=== PATIENT | male | born 1975 | race Caucasian/White ===

== ENCOUNTER 2022-01-03 11:43 | Inpatient (IN) ==
[2022-01-03 12:29] LABS: Basophils % 0.3 % (0.0-0.8); Eosinophils # 0.1 10*3/uL (0.0-0.87); Eosinophils % 0.9 % (0.00-10.9); Hematocrit 37.7 VOL% (42.0-52.0); Hemoglobin 12.4 GM/DL (14.0-18.0); Immature Granulocytes % 0.6 %; Immature Granulocytes Absolute 0.08 #; Lymphocytes # 1.4 10*3/uL (1.4-4.0); Lymphocytes % 10.9 % (21.2-54.2); Mean Corpuscular HGB Conc 32.9 GM/DL (32-36); Mean Corpuscular Volume 86.1 FL (87-102); Mean Platelet Volume 9.9 FL (9.6-12.0); Monocytes # 1.3 10*3/uL (0.11-0.8); Monocytes % 10.2 % (1.7-12.7); Neutrophils % 77.1 % (38.7-73.9); Platelet Count 462 T/CUMM (130-400); Red Blood Count 4.38 MC/CUMM (3.8-5.5); Red Cell Distribution Width 12.2 % (9.3-17.3); White Blood Count 13.1 T/CUMM (4-12)
[2022-01-03 12:51] LABS: Calcium 9.7 MG/DL (8.5-10.1); Osmolality,Calculated 268.4 MOS/KG (273-304); Potassium 3.8 MMOL/L (3.5-5.1)
[2022-01-03 13:09] LABS: Bilirubin,Urine Small mg/dL (Negative); Blood, Urine Negative (Negative); Glucose,Urine (UA) Negative (Negative); Ketones,Urine Trace mg/dL (Negative); Mucus,Urine Many /LPF (Occasional); Nitrite,Urine Negative (Negative); Protein,Urine 100 mg/dL (Negative); RBC,Urine 4 /HPF (0-4); Urine Appearance Clear (Clear); Urine Color Amber (Yellow); Urine Specific Gravity 1.025 (1.001-1.035)
[2022-01-03] MEDS ORDERED: ONDANSETRON 4 MG/2 ML VIAL IV PRN ×2 (13:37→14:20)
[2022-01-03] MEDS ORDERED: BISACODYL 5 MG TABLET PO PRN (13:37)
[2022-01-03] MEDS ORDERED: PROMETHAZINE 25 MG/1 ML VIAL IM PRN (13:37)
[2022-01-03] MEDS ORDERED: SODIUM CHLORIDE 0.9% 100 ML IV ONE (13:46)
[2022-01-03] MEDS ORDERED: cefTRIAXone 1,000 MG VIAL ONE (13:46)
[2022-01-03] MEDS ORDERED: HYDROmorphone 1 MG/1 ML SYRINGE ONE (13:47)
[2022-01-03] MEDS ORDERED: fentaNYL 100 MCG/2 ML VIAL ONE ×2 (13:51→14:29)
[2022-01-03] MEDS ORDERED: propofoL 200 MG/20 ML VIAL IV ONE (13:51)
[2022-01-03] MEDS ORDERED: DEXAMETHASONE 4 MG/1 ML VIAL ONE (13:51)
[2022-01-03] MEDS ORDERED: SUCCINYLCHOLINE 200 MG/10 ML VIAL ONE (13:51)
[2022-01-03] MEDS ORDERED: ROCURONIUM 50 MG/5 ML VIAL IV ONE (13:51)
[2022-01-03] MEDS ORDERED: ONDANSETRON 4 MG/2 ML VIAL ONE (13:51)
[2022-01-03] MEDS ORDERED: MIDAZOLAM 2 MG/2 ML VIAL ONE (13:51)
[2022-01-03] MEDS ORDERED: LIDOCAINE 2% 5 ML VIAL ONE (13:51)
[2022-01-03] MEDS ORDERED: HYDROmorphone 1 MG/1 ML SYRINGE IV ONE (14:00)
[2022-01-03] MEDS ORDERED: HYDROmorphone 1 MG/1 ML SYRINGE IV PRN (14:20)
[2022-01-03] MEDS ORDERED: diphenhydrAMINE 50 MG/1 ML VIAL IV PRN (14:20)
[2022-01-03] MEDS ORDERED: PROMETHAZINE INJ 25 MG in SODIUM CHLORIDE 0.9% 50 ML IV PRN (14:20)
[2022-01-03] MEDS ORDERED: MEPERIDINE 25 MG/1 ML VIAL IV PRN (14:20)
[2022-01-03] MEDS ORDERED: VANCOMYCIN 1,000 MG VIAL ONE (14:29)
[2022-01-03] MEDS ORDERED: LACTATED RINGERS 1,000 ML IV ONE (14:47)
[2022-01-03] MEDS ORDERED: VANCOMYCIN INJ 1,250 MG in SODIUM CHLORIDE 0.9% 250 ML IV SCH (15:00)
[2022-01-03] MEDS ORDERED: SEVOFLURANE 1 UNIT/15 MINUTE INH ONE (15:12)
[2022-01-03] MEDS: cefTRIAXone 1,000 MG in SODIUM CHLORIDE 0.9% 100 ML IV SCH (15:36)
[2022-01-03] MEDS: SODIUM CHLORIDE 0.9% 1,000 ML IV SCH (15:45)
[2022-01-03] MEDS: oxyCODONE/ACETAMINOPHEN 5-325 MG TABLET PO PRN ×2 (17:25→22:29)
[2022-01-03] MEDS: HYDROmorphone 1 MG/1 ML SYRINGE IV PRN (20:20)
[2022-01-03] MEDS: VANCOMYCIN INJ 1,250 MG in SODIUM CHLORIDE 0.9% 250 ML IV SCH (20:50)
[2022-01-04 05:04] LABS: Basophils % 0.2 % (0.0-0.8); Eosinophils % 0.2 % (0.00-10.9); Hematocrit 33.9 VOL% (42.0-52.0); Hemoglobin 10.7 GM/DL (14.0-18.0); Immature Granulocytes % 0.4 %; Immature Granulocytes Absolute 0.05 #; Lymphocytes # 1.7 10*3/uL (1.4-4.0); Lymphocytes % 13.1 % (21.2-54.2); Mean Corpuscular HGB Conc 31.6 GM/DL (32-36); Mean Corpuscular Volume 89.2 FL (87-102); Mean Platelet Volume 10.2 FL (9.6-12.0); Monocytes # 0.9 10*3/uL (0.11-0.8); Monocytes % 7.3 % (1.7-12.7); Neutrophils % 78.8 % (38.7-73.9); Platelet Count 444 T/CUMM (130-400); Red Cell Distribution Width 12.2 % (9.3-17.3); White Blood Count 12.7 T/CUMM (4-12)
[2022-01-04] MEDS: SODIUM CHLORIDE 0.9% 1,000 ML IV SCH (05:13)
[2022-01-04] MEDS: HYDROmorphone 1 MG/1 ML SYRINGE IV PRN ×3 (07:49→22:19)
[2022-01-04] MEDS: VANCOMYCIN INJ 1,250 MG in SODIUM CHLORIDE 0.9% 250 ML IV SCH ×2 (09:30→20:37)
[2022-01-04] MEDS ORDERED: DEXAMETHASONE 4 MG/1 ML VIAL ONE ×2 (13:42→14:37)
[2022-01-04] MEDS ORDERED: ONDANSETRON 4 MG/2 ML VIAL ONE (13:42)
[2022-01-04] MEDS ORDERED: LIDOCAINE 2% 5 ML VIAL ONE (13:42)
[2022-01-04] MEDS ORDERED: fentaNYL 100 MCG/2 ML VIAL ONE (13:42)
[2022-01-04] MEDS ORDERED: SEVOFLURANE 1 UNIT/15 MINUTE INH ONE ×2 (13:42→13:47)
[2022-01-04] MEDS ORDERED: propofoL 200 MG/20 ML VIAL IV ONE (13:42)
[2022-01-04] MEDS ORDERED: MIDAZOLAM 2 MG/2 ML VIAL ONE (13:43)
[2022-01-04] MEDS ORDERED: SODIUM CHLORIDE 0.9% 1,000 ML IV ONE (14:39)
[2022-01-04] MEDS ORDERED: PHENYLEPHRINE 1 MG/10 ML SYRINGE IV ONE (14:47)
[2022-01-04] MEDS ORDERED: ACETAMINOPHEN INJ 1,000 MG/100 ML VIAL IV ONE (14:52)
[2022-01-04] MEDS ORDERED: KETOROLAC 30 MG/1 ML VIAL ONE (14:54)
[2022-01-04] MEDS ORDERED: HYDROmorphone 1 MG/1 ML SYRINGE IV PRN (15:16)
[2022-01-04] MEDS ORDERED: MEPERIDINE 25 MG/1 ML VIAL IV PRN (15:16)
[2022-01-04] MEDS: cefTRIAXone 1,000 MG in SODIUM CHLORIDE 0.9% 100 ML IV SCH (16:10)
[2022-01-04] MEDS: oxyCODONE/ACETAMINOPHEN 5-325 MG TABLET PO PRN (16:38)
[2022-01-05] MEDS: SODIUM CHLORIDE 0.9% 1,000 ML IV SCH (01:39)
[2022-01-05 04:41] LABS: Basophils % 0.4 % (0.0-0.8); Eosinophils % 0.4 % (0.00-10.9); Hematocrit 36.1 VOL% (42.0-52.0); Hemoglobin 11.4 GM/DL (14.0-18.0); Immature Granulocytes % 1.4 %; Immature Granulocytes Absolute 0.13 #; Lymphocytes # 1.5 10*3/uL (1.4-4.0); Lymphocytes % 16.1 % (21.2-54.2); Mean Corpuscular HGB Conc 31.6 GM/DL (32-36); Mean Corpuscular Volume 90.5 FL (87-102); Mean Platelet Volume 9.7 FL (9.6-12.0); Monocytes # 0.6 10*3/uL (0.11-0.8); Monocytes % 6.5 % (1.7-12.7); Neutrophils % 75.2 % (38.7-73.9); Platelet Count 501 T/CUMM (130-400); Red Blood Count 3.99 MC/CUMM (3.8-5.5); Red Cell Distribution Width 12.2 % (9.3-17.3); White Blood Count 9.4 T/CUMM (4-12)
[2022-01-05 07:54] LABS: Alanine Aminotransferase 113 U/L (16-61); Albumin 2.6 G/DL (3.4-5.0); Alkaline Phosphatase 95 U/L (45-117); Aspartate Amino Transferase 50 U/L (0-37); Bilirubin,Total < 0.39 MG/DL (0.20-1.00); Blood Urea Nitrogen 16 MG/DL (7-18); Calcium 9.1 MG/DL (8.5-10.1); Carbon Dioxide 28 MMOL/L (21-32); Chloride 103 MMOL/L (98-107); Glucose 106 MG/DL (74-106); Potassium 4.3 MMOL/L (3.5-5.1); Sodium 136 MMOL/L (136-145); Total Protein 7.3 G/DL (6.4-8.2)
[2022-01-05 08:02] LABS: Alanine Aminotransferase 118 U/L (16-61); Albumin 2.7 G/DL (3.4-5.0); Alkaline Phosphatase 105 U/L (45-117); Aspartate Amino Transferase 52 U/L (0-37); Bilirubin,Direct < 0.100 MG/DL (0.0-0.20); Bilirubin,Indirect 0.3 MG/DL (0.0-1.0); Bilirubin,Total < 0.39 MG/DL (0.20-1.00); Total Protein 7.3 G/DL (6.4-8.2)
[2022-01-05] MEDS: oxyCODONE/ACETAMINOPHEN 5-325 MG TABLET PO PRN ×2 (08:43→18:05)
[2022-01-05] MEDS: VANCOMYCIN INJ 1,250 MG in SODIUM CHLORIDE 0.9% 250 ML IV SCH (08:43)
[2022-01-05] MEDS: HYDROmorphone 1 MG/1 ML SYRINGE IV PRN (14:00)
[2022-01-05] MEDS: ceFAZolin 2,000 MG/50 ML DUPLEX IV SCH ×2 (14:39→21:46)
[2022-01-06 05:07] LABS: Basophils # 0.1 10*3/uL (0.0-0.2); Basophils % 0.6 % (0.0-0.8); Eosinophils # 0.4 10*3/uL (0.0-0.87); Eosinophils % 3.2 % (0.00-10.9); Hematocrit 34.3 VOL% (42.0-52.0); Hemoglobin 10.9 GM/DL (14.0-18.0); Immature Granulocytes % 3.8 %; Immature Granulocytes Absolute 0.44 #; Lymphocytes % 17.3 % (21.2-54.2); Mean Corpuscular HGB Conc 31.8 GM/DL (32-36); Mean Corpuscular Volume 88.9 FL (87-102); Mean Platelet Volume 9.5 FL (9.6-12.0); Monocytes # 0.8 10*3/uL (0.11-0.8); Neutrophils % 68.1 % (38.7-73.9); Platelet Count 463 T/CUMM (130-400); Red Blood Count 3.86 MC/CUMM (3.8-5.5); Red Cell Distribution Width 12.3 % (9.3-17.3); White Blood Count 11.5 T/CUMM (4-12)
[2022-01-06 05:28] LABS: Albumin 2.5 G/DL (3.4-5.0); Bilirubin,Total 0.4 MG/DL (0.20-1.00); Calcium 8.6 MG/DL (8.5-10.1); Osmolality,Calculated 275.7 MOS/KG (273-304); Potassium 4.6 MMOL/L (3.5-5.1); Total Protein 6.4 G/DL (6.4-8.2)
[2022-01-06] MEDS: ceFAZolin 2,000 MG/50 ML DUPLEX IV SCH (05:44)
[2022-01-06] MEDS ORDERED: KETOROLAC 10 MG TABLET PO ONE (08:07)
[2022-01-06 08:48] VITALS: BP 153/90
[2022-01-06] MEDS: HYDROmorphone 1 MG/1 ML SYRINGE IV PRN (09:30)
== END 2022-01-06 11:00 | disposition home or self-care (01) | DRG 857 ==
LOC: N.EDINP 11:43 → N.ED 11:43 → N.3E 16:27
PROVIDERS: ADMIT Urology; ATTEND Urology